=== PATIENT | female | born 1975 | race Hispanic/Latino ===

== ENCOUNTER 2017-12-31 12:09 | Emergency (ER) | payer OTHER ==
[2017-12-31 12:48] LABS: APPEARANCE,URINE SL CLOUDY (CLEAR); BILIRUBIN,URINE NEGATIVE (NEGATIVE); COLOR,URINE YELLOW (YELLOW); GLUCOSE, URINE (UA) NEGATIVE (NEGATIVE); KETONES,URINE NEGATIVE (NEGATIVE); LEUKOCYTE ESTERASE ,URINE SMALL (NEGATIVE); NITRATE,URINE NEGATIVE (NEGATIVE); OCCULT BLOOD,URINE NEGATIVE (NEGATIVE); PROTEIN,URINE NEGATIVE (NEGATIVE); UROBILINOGEN,URINE 0.2 mg/dL (0.2-1.0)
[2017-12-31 12:52] LABS: HCG,QUAL RESULT NEGATIVE (NEGATIVE)
[2017-12-31 13:12] LABS: BACTERIA,URINE Rare /HPF (None Seen); RBC,URINE 0-1 /HPF (0-1); SQUAMOUS EPITHELIAL CELL,UR Few /HPF (0-2)
[2017-12-31] MEDS ORDERED: ONDANSETRON ODT 4 MG TAB ONE (15:15)
[2017-12-31] MEDS ORDERED: MORPHINE SULFATE 2 MG/ML 1ML SYG ONE (15:15)
== END 2017-12-31 15:23 | disposition home or self-care (01) ==
LOC: EDH 12:09
DX: N39.0 Urinary tract infection, site not specified (principal); R19.04 Left lower quadrant abdominal swelling, mass and lump; I10 Essential (primary) hypertension
CPT/HCPCS: 74176; 81001; 81025